=== PATIENT | male | born 1960 | race Asian ===

== ENCOUNTER 2016-12-18 18:20 | Inpatient (IN) | payer OTHER ==
[~2016-12-18] VITALS: Ht 167.6 cm; Wt 64.7 kg
[2016-12-18] MEDS ORDERED: BACL10TA PO (19:00)
[2016-12-18] MEDS ORDERED: IBUP-1681 PO (19:00)
[2016-12-18] MEDS ORDERED: ASPI81TA2 PO (19:00)
[2016-12-18] MEDS ORDERED: CARV12 PO (19:00)
[2016-12-18] MEDS ORDERED: CHOL200041 PO (19:00)
[2016-12-18] MEDS ORDERED: TEMA15 PO (19:00)
[2016-12-18] MEDS ORDERED: BENA20 PO (19:00)
[2016-12-18] MEDS ORDERED: LEVE500T53 PO (19:00)
[2016-12-18] MEDS ORDERED: LAMO100 PO (19:00)
[2016-12-18] MEDS ORDERED: AMLO-511 PO (19:00)
[2016-12-18 19:52] LABS: BASOPHILS % (AUTO) 0.7 % (0.0-2.0); EOSINOPHILS % (AUTO) 2.9 % (1.0-6.0); HEMATOCRIT 49.9 % (41-53); HEMOGLOBIN 15.7 g/dL (13.5-17.5); LYMPHOCYTES # (AUTO) 2.4 K/uL (1.0-4.8); LYMPHOCYTES % (AUTO) 23.1 % (22.0-44.0); MEAN CORPUSCULAR HEMOGLOBIN 24.5 pg (26.0-34.0); MEAN CORPUSCULAR HGB CONC 31.5 G/dL (31.0-37.0); MEAN CORPUSCULAR VOLUME 78 fL (80-100); MONOCYTES # (AUTO) 0.7 K/uL (0.1-1.0); MONOCYTES % (AUTO) 6.9 % (2.0-9.0); NEUTROPHILS # (AUTO) 6.8 K/uL (1.8-7.7); NEUTROPHILS % (AUTO) 66.4 % (40.0-70.0); PLATELET COUNT (AUTO) 258 K/uL (150-450); RED BLOOD CELL COUNT(AUTO) 6.42 MIL/uL (4.50-5.90); RED CELL DISTRIBUTION WIDTH 14.8 % (11.5-14.5); WHITE BLOOD COUNT (AUTO) 10.3 K/uL (4.5-11.0)
[2016-12-18 20:01] LABS: ANION GAP 7 mmol/L (8-16); CARBON DIOXIDE 29 mmol/L (22-29); CHLORIDE 104 mmol/L (98-107); CREATININE 1.06 mg/dL (0.60-1.30); GLOMERULAR FILTR. RATE CALC > 60 mL/min (>60); POTASSIUM 4.5 mmol/L (3.5-5.1); SODIUM SERUM 140 mmol/L (136-145); UREA NITROGEN, BLOOD 19 mg/dL (7-18)
[2016-12-18 20:07] LABS: ALANINE AMINOTRANSFERASE 20 U/L (12-78); ALBUMIN 3.5 g/dL (3.4-5.0); ASPARTATE AMINOTRANSFERASE 14 U/L (15-37); BILIRUBIN,TOTAL 0.8 mg/dL (0.1-1.0); TOTAL PROTEIN, SERUM 8.3 g/dL (6.4-8.2)
[2016-12-19 12:26] LABS: APPEARANCE,URINE CLEAR (CLEAR); GLUCOSE, URINE (UA) NEGATIVE (NEGATIVE); KETONES,URINE 15 mg/dL (NEGATIVE); LEUKOCYTE ESTERASE ,URINE NEGATIVE (NEGATIVE); OCCULT BLOOD,URINE NEGATIVE (NEGATIVE); PH,URINE 7.5 (5.0-8.0); PROTEIN,URINE NEGATIVE (NEGATIVE)
[2016-12-19 12:29] LABS: RBC,URINE None Seen /HPF (0-2); WBC,URINE None Seen /HPF (0-5)
[2016-12-19 12:30] LABS: SQUAMOUS EPITHELIAL CELL,UR Rare /LPF (None Seen)
[2016-12-19 13:10] VITALS: BP 124/89
[2016-12-19 16:00] VITALS: BP 145/81
[2016-12-19] MEDS ORDERED: IBUPROFEN 800 MG TABLET PO PRN (18:00)
[2016-12-19] MEDS ORDERED: TEMAZEPAM 15 MG CAPSULE PO PRN (18:00)
[2016-12-19] MEDS ORDERED: PNEUMOCOCCAL VACCINE POLYVALENT 0.5 ML VIAL [PPSV23] IM ONE (18:30)
[2016-12-19] MEDS: ASPIRIN 81 MG CHEWABLE TABLET PO SCH (18:31)
[2016-12-19] MEDS: BENAZEPRIL HCL 20 MG TABLET PO SCH (18:32)
[2016-12-19] MEDS: AmLODIPine BESYLATE 5 MG TABLET PO SCH (18:32)
[2016-12-19] MEDS: CHOLECALCIFEROL (VIT D3) 1,000 UNITS TABLET PO SCH (18:32)
[2016-12-19] MEDS ORDERED: ONDANSETRON HCL 4 MG/2 ML VIAL IVP PRN (19:15)
[2016-12-19] MEDS ORDERED: ACETAMINOPHEN 325 MG TABLET PO PRN (19:15)
[2016-12-19] MEDS ORDERED: BISACODYL 10 MG RECTAL RECTAL SUPPOSITORY PR PRN (19:15)
[2016-12-19] MEDS ORDERED: HYDROCODONE/ACETAMINOPHEN 5-325 MG TABLET PO PRN (19:15)
[2016-12-19] MEDS ORDERED: MORPHINE SULFATE 2 MG/ML SYRINGE IVP PRN (19:15)
[2016-12-19] MEDS ORDERED: SODIUM CHLORIDE 0.9% 1,000 ML IV ONE (19:15)
[2016-12-19] MEDS ORDERED: MAGNESIUM HYDROXIDE SUSPENSION 30 ML UDCUP PO PRN (19:15)
[2016-12-19] MEDS ORDERED: ZOLPIDEM TARTRATE 5 MG TABLET PO PRN (19:15)
[2016-12-19] MEDS: BACLOFEN 10 MG TABLET PO SCH (21:00)
[2016-12-19] MEDS: LevETIRAcetam 500 MG TABLET PO SCH (21:00)
[2016-12-19 21:01] VITALS: BP 131/83
[2016-12-19] MEDS: CARVEDILOL 12.5 MG TABLET PO SCH (21:01)
[2016-12-19] MEDS: DOCUSATE SODIUM 100 MG CAPSULE PO SCH (21:01)
[2016-12-19] MEDS: HEPARIN SODIUM,PORCINE 5,000 UNITS/ML VIAL SQ SCH (23:25)
[2016-12-19 23:28] VITALS: BP 107/67
[2016-12-20 04:13] VITALS: BP 109/73
[2016-12-20 08:12] VITALS: BP 119/81
[2016-12-20] MEDS ORDERED: LamoTRIgine 100 MG TABLET PO SCH (09:00)
[2016-12-20] MEDS: DOCUSATE SODIUM 100 MG CAPSULE PO SCH ×2 (09:00→20:32)
[2016-12-20] MEDS: BENAZEPRIL HCL 20 MG TABLET PO SCH (09:03)
[2016-12-20] MEDS: CARVEDILOL 12.5 MG TABLET PO SCH ×2 (09:05→21:00)
[2016-12-20] MEDS: PANTOPRAZOLE SODIUM 40 MG DR TABLET PO SCH (09:06)
[2016-12-20] MEDS: BACLOFEN 10 MG TABLET PO SCH ×2 (09:06→20:34)
[2016-12-20] MEDS: ASPIRIN 81 MG CHEWABLE TABLET PO SCH (09:06)
[2016-12-20] MEDS: LevETIRAcetam 500 MG TABLET PO SCH ×3 (09:06→20:33)
[2016-12-20] MEDS: HEPARIN SODIUM,PORCINE 5,000 UNITS/ML VIAL SQ SCH ×4 (09:07→23:48)
[2016-12-20] MEDS: AmLODIPine BESYLATE 5 MG TABLET PO SCH (09:07)
[2016-12-20] MEDS: CHOLECALCIFEROL (VIT D3) 1,000 UNITS TABLET PO SCH (09:07)
[2016-12-20 12:42] VITALS: BP 95/62
[2016-12-20 19:29] VITALS: BP 103/70
[2016-12-20] MEDS: LamoTRIgine 100 MG TABLET PO SCH (20:34)
[2016-12-20 23:46] VITALS: BP 101/61
[2016-12-21 04:00] VITALS: BP 101/70
[2016-12-21 07:30] VITALS: BP 110/70
[2016-12-21] MEDS: HEPARIN SODIUM,PORCINE 5,000 UNITS/ML VIAL SQ SCH ×3 (08:55→23:17)
[2016-12-21] MEDS: BENAZEPRIL HCL 20 MG TABLET PO SCH (08:55)
[2016-12-21] MEDS: BACLOFEN 10 MG TABLET PO SCH ×2 (08:56→20:28)
[2016-12-21] MEDS: PANTOPRAZOLE SODIUM 40 MG DR TABLET PO SCH (08:56)
[2016-12-21] MEDS: CHOLECALCIFEROL (VIT D3) 1,000 UNITS TABLET PO SCH (08:56)
[2016-12-21] MEDS: LevETIRAcetam 500 MG TABLET PO SCH ×3 (08:56→20:28)
[2016-12-21] MEDS: CARVEDILOL 12.5 MG TABLET PO SCH ×2 (08:56→20:27)
[2016-12-21] MEDS: ASPIRIN 81 MG CHEWABLE TABLET PO SCH (08:56)
[2016-12-21] MEDS: AmLODIPine BESYLATE 5 MG TABLET PO SCH (08:56)
[2016-12-21] MEDS: DOCUSATE SODIUM 100 MG CAPSULE PO SCH ×2 (08:56→20:28)
[2016-12-21 11:25] VITALS: BP 131/80
[2016-12-21 16:00] VITALS: BP 93/70
[2016-12-21 19:21] VITALS: BP 101/72
[2016-12-21] MEDS: LamoTRIgine 100 MG TABLET PO SCH (20:28)
[2016-12-22 04:56] VITALS: BP 106/70
[2016-12-22 07:19] VITALS: BP 118/69
[2016-12-22] MEDS: LevETIRAcetam 500 MG TABLET PO SCH ×3 (08:32→19:56)
[2016-12-22] MEDS: AmLODIPine BESYLATE 5 MG TABLET PO SCH (08:32)
[2016-12-22] MEDS: HEPARIN SODIUM,PORCINE 5,000 UNITS/ML VIAL SQ SCH ×3 (08:32→23:41)
[2016-12-22] MEDS: BENAZEPRIL HCL 20 MG TABLET PO SCH (08:32)
[2016-12-22] MEDS: ASPIRIN 81 MG CHEWABLE TABLET PO SCH (08:32)
[2016-12-22] MEDS: BACLOFEN 10 MG TABLET PO SCH ×2 (08:33→19:57)
[2016-12-22] MEDS: CARVEDILOL 12.5 MG TABLET PO SCH ×2 (08:33→21:00)
[2016-12-22] MEDS: DOCUSATE SODIUM 100 MG CAPSULE PO SCH ×2 (08:33→21:00)
[2016-12-22] MEDS: CHOLECALCIFEROL (VIT D3) 1,000 UNITS TABLET PO SCH (08:34)
[2016-12-22] MEDS: PANTOPRAZOLE SODIUM 40 MG DR TABLET PO SCH (08:34)
[2016-12-22 11:43] VITALS: BP 113/63
[2016-12-22 15:59] VITALS: BP 98/68
[2016-12-22 19:30] VITALS: BP 112/63
[2016-12-22] MEDS: LamoTRIgine 100 MG TABLET PO SCH (19:56)
[2016-12-22 23:24] VITALS: BP 109/65
[2016-12-23 05:00] VITALS: BP 111/62
[2016-12-23] MEDS: BENAZEPRIL HCL 20 MG TABLET PO SCH (08:10)
[2016-12-23] MEDS: CARVEDILOL 12.5 MG TABLET PO SCH ×2 (08:10→20:24)
[2016-12-23] MEDS: DOCUSATE SODIUM 100 MG CAPSULE PO SCH ×3 (08:10→20:25)
[2016-12-23] MEDS: BACLOFEN 10 MG TABLET PO SCH ×2 (08:10→20:25)
[2016-12-23] MEDS: CHOLECALCIFEROL (VIT D3) 1,000 UNITS TABLET PO SCH (08:10)
[2016-12-23] MEDS: ASPIRIN 81 MG CHEWABLE TABLET PO SCH (08:11)
[2016-12-23] MEDS: PANTOPRAZOLE SODIUM 40 MG DR TABLET PO SCH (08:11)
[2016-12-23] MEDS: AmLODIPine BESYLATE 5 MG TABLET PO SCH (08:11)
[2016-12-23] MEDS: HEPARIN SODIUM,PORCINE 5,000 UNITS/ML VIAL SQ SCH ×2 (08:12→16:25)
[2016-12-23] MEDS: LevETIRAcetam 500 MG TABLET PO SCH ×4 (08:12→20:43)
[2016-12-23 08:15] VITALS: BP 107/77
[2016-12-23 11:05] VITALS: BP 113/70
[2016-12-23 16:01] VITALS: BP 117/64
[2016-12-23 20:01] VITALS: BP 111/69
[2016-12-23] MEDS: LamoTRIgine 100 MG TABLET PO SCH (21:43)
[2016-12-24] VITALS (7 sets, daily range): BP systolic 98–123; BP diastolic 60–77
[2016-12-24] MEDS: PANTOPRAZOLE SODIUM 40 MG DR TABLET PO SCH (08:30)
[2016-12-24] MEDS: AmLODIPine BESYLATE 5 MG TABLET PO SCH (08:30)
[2016-12-24] MEDS: LevETIRAcetam 500 MG TABLET PO SCH ×2 (08:31→20:29)
[2016-12-24] MEDS: CARVEDILOL 12.5 MG TABLET PO SCH ×2 (08:31→20:29)
[2016-12-24] MEDS: BENAZEPRIL HCL 20 MG TABLET PO SCH (08:32)
[2016-12-24] MEDS: HEPARIN SODIUM,PORCINE 5,000 UNITS/ML VIAL SQ SCH ×3 (08:33→16:00)
[2016-12-24] MEDS: CHOLECALCIFEROL (VIT D3) 1,000 UNITS TABLET PO SCH (08:33)
[2016-12-24] MEDS: ASPIRIN 81 MG CHEWABLE TABLET PO SCH (08:33)
[2016-12-24] MEDS: BACLOFEN 10 MG TABLET PO SCH ×2 (08:33→20:29)
[2016-12-24] MEDS: DOCUSATE SODIUM 100 MG CAPSULE PO SCH ×2 (20:29→20:32)
[2016-12-24] MEDS: LamoTRIgine 100 MG TABLET PO SCH (21:22)
[2016-12-25 03:15] VITALS: BP 119/68
[2016-12-25 08:00] VITALS: BP 110/70
[2016-12-25] MEDS: AmLODIPine BESYLATE 5 MG TABLET PO SCH (08:04)
[2016-12-25] MEDS: ASPIRIN 81 MG CHEWABLE TABLET PO SCH (08:04)
[2016-12-25] MEDS: PANTOPRAZOLE SODIUM 40 MG DR TABLET PO SCH (08:04)
[2016-12-25] MEDS: BACLOFEN 10 MG TABLET PO SCH ×2 (08:04→21:26)
[2016-12-25] MEDS: LevETIRAcetam 500 MG TABLET PO SCH ×3 (08:04→21:25)
[2016-12-25] MEDS: CHOLECALCIFEROL (VIT D3) 1,000 UNITS TABLET PO SCH (08:04)
[2016-12-25] MEDS: CARVEDILOL 12.5 MG TABLET PO SCH ×2 (08:04→21:00)
[2016-12-25] MEDS: BENAZEPRIL HCL 20 MG TABLET PO SCH (08:04)
[2016-12-25] MEDS: HEPARIN SODIUM,PORCINE 5,000 UNITS/ML VIAL SQ SCH ×4 (08:05→23:52)
[2016-12-25 16:36] VITALS: BP 98/60
[2016-12-25 20:35] VITALS: BP 94/65
[2016-12-25] MEDS: DOCUSATE SODIUM 100 MG CAPSULE PO SCH (21:00)
[2016-12-25] MEDS: LamoTRIgine 100 MG TABLET PO SCH (21:26)
[2016-12-26] VITALS (8 sets, daily range): BP systolic 93–110; BP diastolic 62–73
[2016-12-26] MEDS: CARVEDILOL 12.5 MG TABLET PO SCH ×2 (08:38→21:00)
[2016-12-26] MEDS: HEPARIN SODIUM,PORCINE 5,000 UNITS/ML VIAL SQ SCH ×2 (08:38→16:00)
[2016-12-26] MEDS: CHOLECALCIFEROL (VIT D3) 1,000 UNITS TABLET PO SCH (08:38)
[2016-12-26] MEDS: PANTOPRAZOLE SODIUM 40 MG DR TABLET PO SCH (08:38)
[2016-12-26] MEDS: BACLOFEN 10 MG TABLET PO SCH ×2 (08:38→19:33)
[2016-12-26] MEDS: DOCUSATE SODIUM 100 MG CAPSULE PO SCH ×2 (08:38→20:52)
[2016-12-26] MEDS: LevETIRAcetam 500 MG TABLET PO SCH ×3 (08:39→19:32)
[2016-12-26] MEDS: ASPIRIN 81 MG CHEWABLE TABLET PO SCH (08:39)
[2016-12-26] MEDS: BENAZEPRIL HCL 20 MG TABLET PO SCH (09:00)
[2016-12-26] MEDS: AmLODIPine BESYLATE 5 MG TABLET PO SCH (09:00)
[2016-12-26] MEDS: LamoTRIgine 100 MG TABLET PO SCH (19:33)
[2016-12-27 03:59] VITALS: BP 108/73
[2016-12-27 07:41] VITALS: BP 120/89
[2016-12-27] MEDS: CARVEDILOL 12.5 MG TABLET PO SCH (08:50)
[2016-12-27] MEDS: HEPARIN SODIUM,PORCINE 5,000 UNITS/ML VIAL SQ SCH ×2 (08:50)
[2016-12-27] MEDS: PANTOPRAZOLE SODIUM 40 MG DR TABLET PO SCH (08:50)
[2016-12-27] MEDS: BENAZEPRIL HCL 20 MG TABLET PO SCH (08:50)
[2016-12-27] MEDS: CHOLECALCIFEROL (VIT D3) 1,000 UNITS TABLET PO SCH (08:50)
[2016-12-27] MEDS: BACLOFEN 10 MG TABLET PO SCH (08:51)
[2016-12-27] MEDS: DOCUSATE SODIUM 100 MG CAPSULE PO SCH (08:51)
[2016-12-27] MEDS: AmLODIPine BESYLATE 5 MG TABLET PO SCH (08:51)
[2016-12-27] MEDS: ASPIRIN 81 MG CHEWABLE TABLET PO SCH (08:51)
[2016-12-27] MEDS: LevETIRAcetam 500 MG TABLET PO SCH ×2 (08:51→13:50)
== END 2016-12-27 14:00 | disposition home or self-care (01) | DRG 422 ==
LOC: EMS 18:23 → EDBD 18:23 → 6N 12-19 10:52
PROVIDERS: ADMIT Internal Medicine; ATTEND Internal Medicine
DX: E86.0 Dehydration (principal); I69.354 Hemiplegia and hemiparesis following cerebral infarction affecting left non-dominant side; I10 Essential (primary) hypertension; E55.9 Vitamin D deficiency, unspecified; G40.909 Epilepsy, unspecified, not intractable, without status epilepticus; I51.9 Heart disease, unspecified; M24.50 Contracture, unspecified joint; F41.9 Anxiety disorder, unspecified; F43.29 Adjustment disorder with other symptoms; Z99.3 Dependence on wheelchair; Z79.899 Other long term (current) drug therapy; Z79.82 Long term (current) use of aspirin; Z79.1 Long term (current) use of non-steroidal anti-inflammatories (NSAID); Z74.1 Need for assistance with personal care; Z59.0 Homelessness; Z91.19 Patient's noncompliance with other medical treatment and regimen; Z28.21 Immunization not carried out because of patient refusal; Z62.819 Personal history of unspecified abuse in childhood
CPT/HCPCS: 80307; 99285; G0480; J1644; J7030